=== PATIENT | female | born 1980 | race Caucasian/White ===

== ENCOUNTER 2016-07-13 11:12 | Emergency (ER) | payer SELFPAY ==
--- NOTE | ~2016-07-13 | ER ---
PATIENT'S NAME: KOLE PRESSLEY [facility] AGE: 36 Y [address] ROOM: [place] [id number] LOCATION: ED ADMIT DATE: 07/13/2016 ER/Outpatient Report DISCHARGE DATE: 07/13/2016 FAMILY PHYSICIAN: Erin Villanueva MD ATTENDING PHYSICIAN: Mario Neal Time of Arrival: 1112 hours. Time of Evaluation: 1132 hours. CHIEF COMPLAINT: Out of medications. HISTORY OF PRESENT ILLNESS: The patient is a 36-year-old female, who presents to the emergency department today with chief complaint of out of her medications. She reports she has a history of anxiety attacks. She reports she has been having panic attacks over the past couple days. She got one this morning. It did resolve on its own. She normally takes Ativan for this, however, she has ran out. She reports she has tried to go to her primary care doctor at [facility], but she has lost her insurance and says she cannot be seen in there. [facility] and [facility] un[facility]. She was then instructed to go to [facility] and they cannot get her in until July. She then proceeded to and has seen here in the emergency department. She reports she just needs a prescription for her panic attacks. She denies any fevers or chills. No nausea or vomiting. No diarrhea or constipation. She does have shortness of breath and chest pain during the panic attacks, but has none now. Denies any headache. Has felt normal now. PAST MEDICAL HISTORY: 1. Graves disease. 2. Panic attacks. PAST SURGICAL HISTORY: 1. Appendectomy. 2. Tonsillectomy. 3. Myringotomy. SOCIAL HISTORY: The patient smokes a pack per day. Denies any alcohol or illicit drug use. ALLERGIES: NO KNOWN DRUG ALLERGIES. MEDICATIONS: Please see list. PATIENT'S NAME: KOLE PRESSLEY [facility] AGE: 36 Y [address] ROOM: [place] [id number] LOCATION: ED ADMIT DATE: 07/13/2016 ER/Outpatient Report DISCHARGE DATE: 07/13/2016 FAMILY PHYSICIAN: Erin Villanueva MD ATTENDING PHYSICIAN: Mario Neal PRIMARY CARE DOCTOR: Erin Villanueva MD REVIEW OF SYSTEMS: All systems are reviewed by myself and are negative with the exception of those discussed in the HPI and past medical history. PHYSICAL EXAMINATION: VITAL SIGNS: Weight 76.5 kg, blood pressure 120/67, pulse 71, respiratory rate 18, temperature 98.6, and oxygen saturation 98% on room air. GENERAL: The patient is a 36-year-old female, who appears stated age, in no acute distress at this time. HEENT: Head; normocephalic and atraumatic. Pupils are equal, round, and reactive to light and accommodation. Extraocular motions are intact. Nares are patent bilaterally. TMs are clear. Oropharynx is clear. NECK: Supple. There is no nuchal rigidity. CARDIOVASCULAR: Regular rate and rhythm. No murmurs, rubs, or gallops. LUNGS: Clear to auscultation bilaterally. No wheezes, rales, or rhonchi. ABDOMEN: Soft, nontender, and nondistended. No rebound, rigidity, or guarding. MUSCULOSKELETAL: The patient moves all 4 extremities. SKIN: Warm and dry. There are no rashes or lesions noted. LABORATORY DATA AND IMAGING STUDIES: Labs and x-rays: None. IMPRESSION: 1. Medication refill. 2. History of panic attacks. 3. Initial visit. EMERGENCY DEPARTMENT COURSE: The patient was brought back to the examination room. Seen and evaluated by myself. The patient is just requesting a medication refill at this time. I have discussed that I would like her to follow up with [facility] or [facility] for re-evaluation. I have discussed return to care instructions including worsening symptoms or any other concerns to return to the emergency department as soon as possible. The patient has an excellent overall clinical appearance at this time. DISPOSITION: The patient was discharged to home in good condition. PATIENT'S NAME: KOLE PRESSLEY [facility] AGE: 36 Y [address] ROOM: [place] [address] LOCATION: ED ADMIT DATE: 07/13/2016 ER/Outpatient Report DISCHARGE DATE: 07/13/2016 FAMILY PHYSICIAN: Erin Villanueva MD ATTENDING PHYSICIAN: Mario Neal DO VICENTE MEDRANO/modl /[id number] d: 07/13/16 1514 t: 07/13/16 1702, OUTPATIENT REPORT
[~2016-07-13 11:12] MED LIST: EFFEXOR XR150 MG PO; ELAVIL50 MG PO; MOTRIN600 MG PO; NORCO 5-325 MG1 TAB PO; TENORMIN25 M1 PO
== END 2016-07-13 11:50 | disposition disaster alternative care site (69) ==
LOC: GMED 11:12
DX: Z76.0 Encounter for issue of repeat prescription (principal); F41.0 Panic disorder [episodic paroxysmal anxiety]; E05.00 Thyrotoxicosis with diffuse goiter without thyrotoxic crisis or storm; F17.210 Nicotine dependence, cigarettes, uncomplicated; Z90.49 Acquired absence of other specified parts of digestive tract; Z90.89 Acquired absence of other organs; Z79.899 Other long term (current) drug therapy

== ENCOUNTER → 2016-10-18 | Outpatient (CLI) | payer SELFPAY ==
[2016-10-18 12:37] LABS: ANION GAP 7.1 (10.0-19.0); BLOOD UREA NITROGEN 5 mg/dL (6-24); CALCIUM 8.9 mg/dL (8.5-10.5); CHLORIDE 107 mMol/L (96-110); CO2 28 mMol/L (22-32); CREATININE 0.8 mg/dL (0.5-1.1); ESTIMATED GFR (MDRD EQUATION) > 60; POTASSIUM 4.1 mMol/L (3.7-5.1); SODIUM 138 mMol/L (135-145)
== END | disposition disaster alternative care site (69) ==
LOC: GLAB 10-11 10:59
PROVIDERS: Internal Medicine Endocrinology, Diabetes & Metabolism
DX: E04.1 Nontoxic single thyroid nodule (principal); C75.0 Malignant neoplasm of parathyroid gland